=== PATIENT | female | born 1995 | race Caucasian/White ===

== ENCOUNTER 2021-06-03 17:32 | Emergency (ER) | payer OTHER ==
[~2021-06-03] VITALS: Ht 149.9 cm; Wt 63.5 kg
[2021-06-03 17:56] VITALS: BP 154/75
--- NOTE | 2021-06-03 20:00 | NUR ---
PATIENT W/C ASSISTED TO BED 3
--- NOTE | 2021-06-03 20:27 | NUR ---
PATIENT C/O PAIN TO THE KNEE 04/13 PEÑA-- ERMD MADE AWARE
[2021-06-03] MEDS ORDERED: HYDROcodone/APAP 5/325 MG 1 TAB TAB PO ONE (20:35)
[2021-06-03] MEDS ORDERED: HYDR-5080 PO (21:12)
[2021-06-03] MEDS ORDERED: IBUP-2213 PO (21:12)
--- NOTE | 2021-06-03 21:22 | NUR ---
PLACED A LONG POSTERIOR SPLINT ON PT'S LEFT LEG. ERMD MADE AWARE THAT IT IS READY FOR INSPECTION.
--- NOTE | 2021-06-03 21:41 | NUR ---
DR LUNA VERIFIED SPLINT PLACED PROPERLY, CMS INTACT PRIOR AND AFTER SPLINT PLACEMENT.
--- NOTE | 2021-06-03 21:41 | NUR ---
ERMD Flammia at bedside assessing the splint and patient condition.
--- NOTE | 2021-06-03 21:42 | NUR ---
ERMD AWARE OF INCREASED HR ON PATIENT-- ERMD COMFORTABLE SENDING PATIENT HOME AT THIS TIME.
--- NOTE | 2021-06-03 21:49 | NUR ---
Patient discharged with v/s stable. Written and verbal after care instructions given and explained. Patient alert, oriented and verbalized understanding of instructions. Wheel Chair Assisted with to car. All questions addressed prior to discharge. ID band removed. Patient advised to follow up with PMD. Rx of NORCO 7.5-325 AND IBUPROFEN given. Patient educated on indication of medication including possible reaction and side effects. Opportunity to ask questions provided and answered.
[2021-06-03 22:16] VITALS: BP 142/81
--- NOTE | 2021-06-03 22:17 | NUR ---
Zandra matthews in ED - 06/03/21 at 2218 by GRAYSON ERMD AWARE OF INCREASED HR ON PATIENT-- ERMD COMFORTABLE SENDING PATIENT HOME AT THIS TIME.
== END 2021-06-03 21:49 | disposition home or self-care (01) ==
LOC: MED 17:32
DX: S82.145A Nondisplaced bicondylar fracture of left tibia, initial encounter for closed fracture (principal); J45.909 Unspecified asthma, uncomplicated; Z90.49 Acquired absence of other specified parts of digestive tract; Z79.1 Long term (current) use of non-steroidal anti-inflammatories (NSAID); Z79.891 Long term (current) use of opiate analgesic; X58.XXXA Exposure to other specified factors, initial encounter; Y93.39 Activity, other involving climbing, rappelling and jumping off; Y92.830 Public park as the place of occurrence of the external cause; Y99.8 Other external cause status
CPT/HCPCS: 29505; 73562; 73590; 99284